=== PATIENT | male | born 1985 | race Caucasian/White ===

== ENCOUNTER 2021-08-12 02:24 | Emergency (ER) | payer BC ==
[2021-08-12] MEDS ORDERED: Sodium Chloride 0.9% 1,000 ML IV ONE (02:43)
[2021-08-12] MEDS ORDERED: Sodium Chloride 0.9% 10 ML Syringe FLUSH PRN (02:43)
[2021-08-12] MEDS ORDERED: Sodium Chloride 0.9% 2.5 ML Syringe FLUSH PRN (02:43)
[2021-08-12 03:03] LABS: BLOOD UREA NITROGEN,BUN 12 mg/dL (7.0-18.0); CARBON DIOXIDE,CO2 21.2 mmol/L (21.0-32.0); CHLORIDE,CL 106 mmol/L (98-107); GLUCOSE RANDOM 130 mg/dL (74-106); POTASSIUM,K 3.9 mmol/L (3.5-5.1); SODIUM,NA 141 mmol/L (136-148)
[2021-08-12] MEDS ORDERED: Acetaminophen 500 MG Tab PO ONE (03:35)
[2021-08-12 04:10] VITALS: BP 142/86; PULSE 77
== END 2021-08-12 04:15 | disposition home or self-care (01) ==
LOC: MW.ED 02:24
DX: R42 Dizziness and giddiness (principal); R20.2 Paresthesia of skin; R53.1 Weakness; Z20.822 Contact with and (suspected) exposure to COVID-19; Z90.49 Acquired absence of other specified parts of digestive tract; Z88.0 Allergy status to penicillin
CPT/HCPCS: 36415; 71045; 80053; 81003; 83735; 84484; 85025; 87635; 93005; 96360; 99285; A9270; J3490; J7030; 93010; 99284; U0002